=== PATIENT | female | born 1980 | race Caucasian/White ===

== ENCOUNTER 2017-10-15 15:24 | Emergency (ER) | payer SELFPAY ==
[~2017-10-15] VITALS: Ht 162.6 cm; Wt 110.0 kg
[~2017-10-15 15:24] MED LIST: CLIN150 PO
[2017-10-15 15:27] VITALS: BP 184/100; PULSE 104; RESP 13; TEMP 99; O2SAT 98
[2017-10-15] MEDS ORDERED: SODIUM CHLOR 0.9% 1000 ML INJ 1,000 ML IV SCH (17:25)
[2017-10-15] MEDS ORDERED: ACETAMINOPHEN 325 MG TAB PO ONE (17:30)
[2017-10-15] MEDS ORDERED: SODIUM CHLORIDE 0.9% FLUSH 10 ML FLUSH IV FLUSH PRN (17:30)
--- NOTE | 2017-10-15 17:30 | PD ---
HPI Chief Complaint: Cold / Flu Symptoms Time Seen by Provider: 17:20 Travel History International Travel<30 days: No Contact w/Intl Traveler<30days: No Traveled to known affect area: No History of Present Illness HPI 37-year-old female here for evaluation of flulike symptoms for last 3 days. The patient has had a cough productive of yellowish sputum, generalized malaise , body aches. She denies nausea, vomiting, or diarrhea. No abdominal pain. She has had a fever. She was seen by her primary care physician last week for sore throat and was given medicine which did not help her. [facility] Past Medical History Medical History: Denies Significant Hx ?: Not LMP: 09/12/17 Past Surgical History Surgical History: No Previous Surgery Social History Alcohol Use: No Tobacco Use: No Substance Use: No Allergies-Medications (Allergen,Severity, Reaction): Coded Allergies: penicillin G (Unverified Allergy, Unknown, 10/15/17) Reported Meds & Prescriptions Reported Meds & Active Scripts Active Cleocin (Clindamycin HCl) 150 Mg Cap 300 Mg PO QID 10 Days Review of Systems Except as stated in HPI: all other systems reviewed are Neg Physical Exam Narrative GENERAL: Well-developed, well-nourished, no apparent distress. SKIN: Focused skin assessment warm/dry. No rash. HEAD: Atraumatic. Normocephalic. EYES: Pupils equal and round. No scleral icterus. No injection or drainage. ENT: Mucous membranes pink and moist. NECK: Trachea midline. No JVD. No nuchal rigidity. CARDIOVASCULAR: Regular rate and rhythm. RESPIRATORY: No accessory muscle use. Clear to auscultation. Breath sounds equal bilaterally. GASTROINTESTINAL: Abdomen soft, non-tender, nondistended. MUSCULOSKELETAL: No obvious deformities. No clubbing. No cyanosis. No edema. NEUROLOGICAL: Awake and alert. No obvious cranial nerve deficits. Motor grossly within normal limits. Normal speech. PSYCHIATRIC: Appropriate mood and affect; insight and judgment normal. Data Data Last Documented VS Vital Signs Date Time Temp Pulse Resp B/P (MAP) Pulse Ox O2 Delivery O2 Flow Rate FiO2 10/15/17 15:27 99.0 104 13 184/100 (128) 98 Orders Orders Beta Hcg (Quant/Titer) (10/15/17 17:25) Complete Blood Count With Diff (10/15/17 17:25) Comprehensive Metabolic Panel (10/15/17 17:25) Urinalysis - C+S If Indicated (10/15/17 17:25) Iv Access Insert/Monitor (10/15/17 17:25) Ecg Monitoring (10/15/17 17:25) Oximetry (10/15/17 17:25) Sodium Chlor 0.9% 1000 Ml Inj (Ns 1000 M (10/15/17 17:25) Sodium Chloride 0.9% Flush (Ns Flush) (10/15/17 17:30) Influenzae A/B Antigen (10/15/17 17:25) Group A Rapid Strep Screen (10/15/17 17:25) Chest, Single Ap (10/15/17 ) Acetaminophen (Tylenol) (10/15/17 17:30) Strep Culture (Group A) (10/15/17 17:44) Oseltamivir (Tamiflu) (10/15/17 18:45) Labs Laboratory Tests Test 10/15/17 17:44 10/15/17 18:13 White Blood Count 4.8 TH/MM3 Red Blood Count 4.07 MIL/MM3 Hemoglobin 12.2 GM/DL Hematocrit 34.5 % Mean Corpuscular Volume 84.8 FL Mean Corpuscular Hemoglobin 30.0 PG Mean Corpuscular Hemoglobin Concent 35.4 % Red Cell Distribution Width 13.8 % Platelet Count 168 TH/MM3 Mean Platelet Volume 8.9 FL Neutrophils (%) (Auto) 60.2 % Lymphocytes (%) (Auto) 23.6 % Monocytes (%) (Auto) 11.9 % Eosinophils (%) (Auto) 3.6 % Basophils (%) (Auto) 0.7 % Neutrophils # (Auto) 2.9 TH/MM3 Lymphocytes # (Auto) 1.1 TH/MM3 Monocytes # (Auto) 0.6 TH/MM3 Eosinophils # (Auto) 0.2 TH/MM3 Basophils # (Auto) 0.0 TH/MM3 CBC Comment DIFF FINAL Differential Comment Blood Urea Nitrogen 10 MG/DL Creatinine 0.63 MG/DL Random Glucose 96 MG/DL Total Protein 7.5 GM/DL Albumin 3.6 GM/DL Calcium Level 8.8 MG/DL Alkaline Phosphatase 76 U/L Aspartate Amino Transf (AST/SGOT) 18 U/L Alanine Aminotransferase (ALT/SGPT) 45 U/L Total Bilirubin 0.3 MG/DL Sodium Level 140 MEQ/L Potassium Level 3.4 MEQ/L Chloride Level 106 MEQ/L Carbon Dioxide Level 26.2 MEQ/L Anion Gap 8 MEQ/L Estimat Glomerular Filtration Rate 106 ML/MIN Human Chorionic Gonadotropin, Quant LESS THAN 1 MIU/ML Urine Color YELLOW Urine Turbidity CLEAR Urine pH 5.5 Urine Specific [place] 1.016 Urine Protein NEG mg/dL Urine Glucose (UA) NEG mg/dL Urine Ketones NEG mg/dL Urine Occult Blood NEG Urine Nitrite NEG Urine Bilirubin NEG Urine Urobilinogen LESS THAN 2.0 MG/DL Urine Leukocyte Esterase NEG Urine RBC 2 /hpf Urine WBC 1 /hpf Urine Squamous Epithelial Cells 2 /hpf Urine Mucus FEW /lpf Microscopic Urinalysis Comment CULT NOT INDICATED MDM Medical Decision Making Medical Screen Exam Complete: Yes Emergency Medical Condition: Yes Differential Diagnosis Influenza, URI, viral illness, pneumonia, dehydration, metabolic abnormality Narrative Course Vital signs reviewed. CBC is unremarkable. CMP is unremarkable. Beta hCG is negative. UA is not suggestive of UTI. Influenza B-positive. Chest x-ray: No evidence of acute cardio pulmonary disease. The patient was made aware of all findings could she was given a liter of normal saline here in the emergency department and a first dose of Tamiflu. I believe she is stable for discharge home with outpatient follow-up with her primary care physician this week. She will be started on Tamiflu and was advised to stay hydrated with plenty of fluids and to keep fever under control by alternating between Tylenol and ibuprofen. She was advised on when to return to the emergency department. She verbalizes understanding and agreement with plan. Diagnosis Primary Impression: Influenza B Referrals: Primary Care Physician 2 days Additional Instructions: Follow-up with your primary care physician this week. Stay hydrated with plenty of fluids. Keep fever under control with Tylenol and ibuprofen. Return to the emergency department for worsening symptoms or any other concerns. Scripts Oseltamivir (Tamiflu) 75 Mg Cap 75 MG PO BID for Mgmt Viral Infection for 5 Days, #10 CAP 0 Refills Prov: Rosas Cunningham MD 10/15/17 Disposition: 01 DISCHARGE HOME Condition: Stable Rosas Cunningham MD Oct 15, 2017 17:30
--- NOTE | 2017-10-15 17:47 | RADRPT ---
EXAM DATE/TIME: 10/15/2017 17:33 [facility] COMPARISON: No previous studies available for comparison. INDICATIONS : Cough. MEDICAL HISTORY : None. SURGICAL HISTORY : None. ENCOUNTER: Initial ACUITY: 1 day PAIN SCORE: 5/10 LOCATION: Bilateral chest FINDINGS: A single view of the chest demonstrates the lungs to be symmetrically aerated without evidence of mas s, infiltrate or effusion. The cardiomediastinal contours are unremarkable. Osseous structures are intact. CONCLUSION: No evidence of acute cardiopulmonary disease. Adrian Bains MD on October 15, 2017 at 17:44 Board Certified Radiologist. This report was verified electronically.
[2017-10-15 18:42] LABS: AUTOMATED NEUTROPHIL # 2.9 TH/MM3 (1.8-7.7); BASOPHIL % 0.7 % (0.0-2.0); EOSINOPHIL # 0.2 TH/MM3 (0-0.4); EOSINOPHIL % 3.6 % (0.0-4.0); HEMATOCRIT 34.5 % (35.0-46.0); HEMOGLOBIN 12.2 GM/DL (11.6-15.3); LYMPH % 23.6 % (9.0-44.0); LYMPHOCYTE # 1.1 TH/MM3 (1.0-4.8); MEAN CELL VOLUME 84.8 FL (80.0-100.0); MEAN CORPUSCULAR HGB CONC 35.4 % (32.0-36.0); MEAN PLATELET VOLUME 8.9 FL (7.0-11.0); MONO % 11.9 % (0.0-8.0); MONOCYTE # 0.6 TH/MM3 (0-0.9); NEUT % 60.2 % (16.0-70.0); PLATELET COUNT 168 TH/MM3 (150-450); RED BLOOD COUNT 4.07 MIL/MM3 (4.00-5.30); RED CELL DISTRIBUTION WIDTH 13.8 % (11.6-17.2); WHITE BLOOD COUNT 4.8 TH/MM3 (4.0-11.0)
[2017-10-15] MEDS ORDERED: OSELTAMIVIR PHOSPHATE 75 MG CAP PO ONE (18:45)
[2017-10-15 18:46] LABS: ALBUMIN 3.6 GM/DL (3.4-5.0); AST (GOT) 18 U/L (15-37); BICARBONATE 26.2 MEQ/L (21.0-32.0); BLOOD UREA NITROGEN 10 MG/DL (7-18); CALCIUM 8.8 MG/DL (8.5-10.1); CHLORIDE 106 MEQ/L (98-107); CREATININE 0.63 MG/DL (0.50-1.00); GLOMERULAR FILTRATION RATE 106 ML/MIN (>89); GLUCOSE,RANDOM 96 MG/DL (74-106); SODIUM (NA) 140 MEQ/L (136-145)
[2017-10-15 18:51] LABS: ALKALINE PHOSPHATASE 76 U/L (45-117); ALT (GPT) 45 U/L (10-53); TOTAL BILIRUBIN ADULT 0.3 MG/DL (0.2-1.0); TOTAL PROTEIN 7.5 GM/DL (6.4-8.2)
[2017-10-15 18:51] LABS: BILIRUBIN, URINE NEG (NEG); BLOOD, URINE NEG (NEG); GLUCOSE,URINE NEG (NEG); KETONE, URINE NEG (NEG); MUCUS URINE FEW /lpf (OCC); NITRITE,URINE NEG (NEG); PH, URINE 5.5 (5.0-8.5); SQUAMOUS EPITHELIAL CELL URINE 2 /hpf (0-5); URINE COLOR YELLOW (YELLW/STRAW); URINE LEUKOCYTE ESTERASE NEG (NEG)
[2017-10-15] MEDS ORDERED: OSEL75 PO (18:58)
[2017-10-15 19:15] VITALS: BP 152/78
== END 2017-10-15 19:17 | disposition home or self-care (01) ==
LOC: NEPD 15:24
DX: J10.1 Influenza due to other identified influenza virus with other respiratory manifestations (principal)
CPT/HCPCS: 71045; 80053; 81001; 84702; 85025; 87081; 87804; 87880; 96360; 99284; J7030